=== PATIENT | female | born 1995 | race Hispanic/Latino ===

== ENCOUNTER 2016-08-12 10:44 | Emergency (ER) | payer OTHER ==
[~2016-08-12] VITALS: Ht 165.1 cm; Wt 73.0 kg
[~2016-08-12 10:44] MED LIST: IBUP200T48 PO
[2016-08-12 10:47] VITALS: BP 113/70; PULSE 68; RESP 16; O2SAT 97
--- NOTE | 2016-08-12 10:56 | ED.REPORT ---
HPI-General Illness Date of Service Aug 12, 2016 ED Provider: The patient is a 21 year old female with no pertinent medical history who presents to the emergency department complaining of a diffuse, "throbbing," headache that began yesterday morning. The pain became gradually worse throughout the day. She has also noticed nausea, vomiting, dizziness and lightheadedness with walking. She has been eating and drinking well. She took Tylenol and Oxycodone with no relief. Today her pain has been intermittent. She denies fever, chills, chest pain, abdominal pain, shortness of breath, visual changes, unilateral weakness or neck stiffness. The patient is currently taking a control but no other medications. Nursing Notes Stated Complaint: HEADACHE Chief Complaint: General Complaint Nursing Notes Reviewed: Yes Allergies: Coded Allergies: No Known Allergies (Unverified Allergy, 01/15/12) Scheduled PRN IBUPROFEN-Expunged Drug, Do Not Renew! 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 Past Surgical History Tumor removal Family History Reports: Diabetes mellitus Smoking History Never Smoker Social History Alcohol Use: Denies alcohol use Drug Use: Denies drug use Other Social History: Good social support, Local resident Ambulatory Status Independent Review of Systems Full Review of Systems Constitutional: Denies: Chills, Fever Respiratory: Denies: Shortness of breath Cardiovascular: Denies: Chest pain GI: Reports: Nausea, Vomiting, Denies: Abdominal pain Musculoskeletal: Denies: Neck pain Neurologic: Reports: Dizziness, Headache, Lightheaded, Denies: Vision change, Weakness Complete sys rev & neg: except as marked. Physical Exam Nursing note and vitals reviewed. Constitutional: Well-developed, well-nourished. Not diaphoretic. Head: Normocephalic and atraumatic. Mouth/Throat: Oropharynx is clear and moist. No oropharyngeal exudate. Eyes: EOM are normal. Pupils are equal, round, and reactive to light bilaterally. Neck: Supple, no tracheal deviation. No meningismus. Full range of motion of the neck. Cardiovascular: Normal rate, regular rhythm. Equal and intact distal pulses throughout. Pulmonary/Chest: Effort normal and breath sounds normal. No respiratory distress. Abdominal: Soft. No distension. There is no tenderness, rebound, or guarding. Bowel sounds present. Musculoskeletal: Range of motion grossly intact, moving all extremities. No edema or tenderness appreciated. Neurological: AOx3. Grossly nonfocal exam. Strength and sensation intact and equal to bilateral upper and lower extremities. Normal finger to nose testing. No pronator drift. Negative Romberg, unremarkable gait. Skin: Warm and dry, no rashes or pallor appreciated. Psychiatric: Appropriate mood and affect. Behavior appears normal. Vital Signs Vital Signs Date Time Temp Pulse Resp B/P Pulse Ox O2 Delivery O2 Flow Rate FiO2 08/12/16 13:26 36.9 62 109/64 100 Room Air 08/12/16 10:47 36.6 68 16 113/70 97 Room Air Initial VS: Reviewed Interpretation & Diagnostics Lab Results Interpretation Test 08/12/16 12:04 Hold Urine Received (Received) CT Head Interpretation IMPRESSION: No acute intracranial findings. Dictated by: Ya Bethea M.D. on 08/12/2016 at 12:37 Study: Head CT no contrast Interpretation / Wet Read by: Interpret - Radiologist Re-Eval/Medical Decision Med Decision/Clinical Course Gradual onset progressive headache that is intermittent. Treated with Compazine , Benadryl, Toradol, and IVF with improvement in symptoms. Head CT shows no acute intracranial findings. No fever, no meningismus, normal neurologic exam - doubt meningitis. Headache gradual in onset, not worst of life, intermittent - does not seem consistent with subarachnoid hemorrhage. Given the above, reasonable to discharge home with very careful return precautions, PCP follow- up. Patient agreeable to the plan as stated, no further questions. Time of Eval: 11:05 Re-Evaluation/Progress Note: Discussed plan for symptom control. Time of Eval: 12:45 Re-Evaluation/Progress Note: Rechecked the patient. She is feeling much better. Discussed plan for discharge. All questions were addressed. Counseled Regarding: Diagnosis, Need for follow-up, When/why to return to ED Discharge & Departure Primary Impression: Headache Headache type: unspecified Headache chronicity pattern: acute headache Intractability: not intractable Qualified Code: R51 - Headache Disposition: Home Discharge Condition All VS Reviewed: Yes Condition: Stable Patient Instructions: Acute Headache (ED) Additional Instructions: Thank you for entrusting us with your care today. Make sure to rest and drink plenty of fluids. Followup with your regular doctor next week for re-evaluation. Return to the emergency department for any new or concerning symptoms, specifically worsening pain, uncontrollable vomiting, fever, neck stiffness, visual changes, or any other new or concerning symptoms. Referrals: Yulisa Bangura (PCP) Scribe Attestation Portions of this note were transcribed by Roma Pierre. I, Dr. Azul personally performed the history, physical exam and medical decision-making; I reviewed and confirmed the accuracy of the information in the transcribed note. Signed by: Helen Perez, 08/12/2016 at 1315. copies to: Yulisa Bangura William B MD Aug 12, 2016 10:55 Roma Pierre Aug 12, 2016 11:06
[2016-08-12] MEDS ORDERED: 0.9% Sodium Chloride 1,000 ML IV ONE (11:08)
[2016-08-12] MEDS ORDERED: Ketorolac 15 mg/mL Inj IVPUSH ONE (11:10)
[2016-08-12] MEDS ORDERED: ProchlorPERazine 5 mg/mL 2 mL Inj IVPUSH ONE (11:10)
--- NOTE | 2016-08-12 12:41 | DRSVH ---
PROCEDURE: CT BRAIN WITHOUT CONTRAST ([id number]) INDICATIONS: headache, vomiting; eval for bleed, mass, other TECHNIQUE: Noncontrast 4.5 mm thick angled axial sections acquired from the foramen magnum to the vertex, with c oronal reformats. COMPARISON: None. FINDINGS: Image quality: Excellent. CSF spaces: Basal cisterns are patent. No extra-axial fluid collections. Ventricles are normal in size and shape. Brain: No midline shift. No intracranial masses or hemorrhage. Solomon-white matter interface is norm al. Skull and face: Calvarium and visualized facial bones are intact, without suspicious lesions. Sinuses: Visualized sinuses and mastoids are clear. IMPRESSION: No acute intracranial findings. Dictated by: Ya Bethea M.D. on 08/12/2016 at 12:37 Approved by: Ya Bethea M.D. on 08/12/2016 at 12:39
[2016-08-12 13:26] VITALS: BP 109/64; PULSE 62; O2SAT 100
== END 2016-08-12 13:24 | disposition home or self-care (01) ==
LOC: SED 10:44
DX: R51 Headache (principal); R42 Dizziness and giddiness; R11.2 Nausea with vomiting, unspecified
CPT/HCPCS: 70450; 81025; 96361; 96374; 96375; 99285; J0780; J1200; J1885; J7030